=== PATIENT | male | born 1965 | race Caucasian/White ===

== ENCOUNTER → 2017-09-17 | Outpatient (CLI) | payer OTHER ==
[~2017-09-17] MED LIST: CYCL-36 PO; DICL50 PO; PRED20 PO; Z.0.NO CURRENT MEDS
== END ==
LOC: CLAB 09:21
PROVIDERS: ATTEND Specialist
DX: B18.2 Chronic viral hepatitis C (principal); R79.89 Other specified abnormal findings of blood chemistry
CPT/HCPCS: 36415; 82140